=== PATIENT | male | born 1975 | race Caucasian/White ===

== ENCOUNTER → 2022-04-24 | Outpatient (REF) | LOC: M PLAIMG 10:27 | PROVIDERS: ATTEND Internal Medicine | DX: R06.02 Shortness of breath (principal) ==

== ENCOUNTER 2022-10-20 07:08 | Day surgery (SDC) | payer OTHER ==
[~2022-10-20] VITALS: Ht 175.3 cm; Wt 98.9 kg
[~2022-10-20 07:08] MED LIST: BRIN1TAB3 PO; LISI10TA22 PO; NAPR-885 PO; NS 1,000 ML IV ONE
[2022-10-20] MEDS ORDERED: propofoL 200 MG/20 ML VIAL As Ordered ONE (07:09)
[2022-10-20 08:27] VITALS: TEMP 96.7
[2022-10-20 09:03] VITALS: BP 138/73; O2SAT 95
== END 2022-10-20 09:06 | disposition home or self-care (01) ==
LOC: M OPP 07:08
PROVIDERS: ATTEND Internal Medicine Gastroenterology
DX: Z12.11 Encounter for screening for malignant neoplasm of colon (principal); K64.0 First degree hemorrhoids; Z79.1 Long term (current) use of non-steroidal anti-inflammatories (NSAID); Z79.899 Other long term (current) drug therapy

== ENCOUNTER → 2024-02-17 | Outpatient (CLI) | payer OTHER ==
[~2024-02-17] MED LIST changes: -NS 1,000 ML IV ONE
== END ==
LOC: M RAD 08:22
PROVIDERS: ATTEND Nurse Practitioner Adult Health
DX: R94.5 Abnormal results of liver function studies (principal); K76.0 Fatty (change of) liver, not elsewhere classified

== ENCOUNTER → 2024-04-29 | Outpatient (CLI) | payer OTHER ==
[~2024-04-29] MED LIST changes: +CEPH500C PO; +GABA-1172; +META-10; +SEMA0.5P SQ
== END ==
LOC: M PLARAD 10:19
PROVIDERS: ATTEND Family Medicine
DX: M54.16 Radiculopathy, lumbar region (principal); M51.360 Other intervertebral disc degeneration, lumbar region with discogenic back pain only

== ENCOUNTER 2024-05-06 14:17 | Emergency (ER) | payer OTHER ==
[~2024-05-06] VITALS: Ht 172.7 cm; Wt 97.4 kg
[~2024-05-06 14:17] MED LIST changes: -CEPH500C PO; -GABA-1172; -META-10; -SEMA0.5P SQ
[2024-05-06 14:20] VITALS: BP 147/78; TEMP 97.4; O2SAT 97
[2024-05-06] MEDS ORDERED: SEMA0.5P SQ (14:26)
[2024-05-06] MEDS ORDERED: GABA-1172 (14:26)
[2024-05-06] MEDS ORDERED: META-10 (14:26)
[2024-05-06] MEDS ORDERED: CEPH500C PO (18:14)
== END 2024-05-06 18:20 | disposition home or self-care (01) ==
LOC: M ED 14:17
DX: L03.011 Cellulitis of right finger (principal); I10 Essential (primary) hypertension; Z79.2 Long term (current) use of antibiotics; Z79.811 Long term (current) use of aromatase inhibitors; Z79.899 Other long term (current) drug therapy

== ENCOUNTER → 2024-07-13 | Outpatient (CLI) | payer OTHER ==
[~2024-07-13] MED LIST changes: +CEPH500C PO; +GABA-1172; +META-10; +SEMA0.5P SQ
== END ==
LOC: M SLEEP 20:00
PROVIDERS: ATTEND Registered Nurse
DX: G47.33 Obstructive sleep apnea (adult) (pediatric) (principal)